=== PATIENT | male | born 1995 | race Caucasian/White ===

== ENCOUNTER 2024-09-04 20:46 | Emergency (ER) | payer BC ==
[~2024-09-04] VITALS: Ht 167.6 cm; Wt 79.0 kg
[2024-09-04 21:26] VITALS: TEMP 36.6; O2SAT 99
[2024-09-05] MEDS ORDERED: CEPH500C2 MT (00:07)
[2024-09-05] MEDS ORDERED: BO1 TP (00:07)
[2024-09-05] MEDS: BACITRACIN ZINC OINT UDPKT TOP ONE (00:12)
[2024-09-05] MEDS: IBUPROFEN 600MG TABLET PO ONE (00:12)
[2024-09-05] MEDS: TETANUS, DIPHTHERIA, PERTUSSIS VAC/PF 0.5ML (>10YR OLD) IM ONE (00:13)
[2024-09-05] MEDS: LIDOCAINE HCL/PF 1% 10 MG/ML 5ML VIAL INFIL ONE (00:14)
[2024-09-05 00:20] VITALS: BP 106/53; PULSE 68; RESP 18; O2SAT 99
== END 2024-09-05 00:23 | disposition home or self-care (01) ==
LOC: ER 20:46
DX: S61.411A Laceration without foreign body of right hand, initial encounter (principal); S60.221A Contusion of right hand, initial encounter; Z79.899 Other long term (current) drug therapy; W45.8XXA Other foreign body or object entering through skin, initial encounter; Y93.89 Activity, other specified; Y92.89 Other specified places as the place of occurrence of the external cause; Y99.8 Other external cause status
CPT/HCPCS: 73130; 90715; 12001; 99283; 90471; J2003; Z7610 ×2